=== PATIENT | female | born 1965 | race Caucasian/White ===

== ENCOUNTER 2021-11-18 15:16 | Inpatient (IN) ==
--- NOTE | 2021-11-18 15:26 | ED Triage Note ---
Date of Service November 18, 2021 History of Present Illness This patient was briefly evaluated while in triage. An abbreviated physical exam was performed. This patient is a 56-year-old Female with past medical history of breast cancer with mets to lymph nodes who presents to the ED for evaluation of fever up to 102.5, last taken at 1pm today. Took Tylenol at 1pm. Currently on Chemo weekly since July. Had new port placed about a month ago. Physical Exam VITALS: Noted to be febrile and mildly tachycardic. CONSTITUTIONAL: No acute distress. Well appearing. INTEGUMENTARY: Redness overlying right anterior chest wall near IV access port. Mildly tender to palpation. NEUROLOGIC: Alert and oriented X 4 with normal affect. Initial orders were not placed, as Dr. Chong called while patient in triage and states he will see this patient and place orders. Please see further documentation for the full ED course.
[2021-11-18] MEDS ORDERED: SODIUM CHLORIDE 0.9% 1000ML 2,000 ML IV ONE (15:30)
[2021-11-18] MEDS ORDERED: CEFEPIME 2,000 MG/20 ML VIAL IV STA (15:30)
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
[2021-11-18 16:41] LABS: Albumin Globulin Ratio 1.4 (0.9-2); Albumin Level 3.6 gm/dl (3.4-5.0); BUN Creatinine Ratio 14.4 (10-20); Bilirubin,Total 0.3 mg/dl (0.2-1.0); Calcium 8.1 mg/dl (8.5-10.1); Creatinine Clr Calc Pharmacy 51.2 ml/min; Est GFR (Non-African American) 60.4 ml/min; Globulin 2.5 gm/dl (2.5-4.0); Magnesium 1.6 mg/dl (1.7-2.4); Potassium 3.6 mmol/L (3.5-5.1); Total Protein 6.1 gm/dl (6.0-8.3)
[2021-11-18 16:44] LABS: Appearance Urine Clear (Clear); Bilirubin Urine Negative (Negative); Blood Urine Negative (Negative); Color Urine Yellow; Glucose Urine UA Negative (Negative); Ketones Urine Trace (Negative); Leukocyte Esterase Urine Negative (Negative); Nitrite Urine Negative (Negative); Protein Urine Negative (Negative); Specific Gravity Urine 1.027 (1.000-1.030); Urobilinogen Urine Negative (Negative); pH Urine 5.5 (4.5-7.5)
--- NOTE | 2021-11-18 16:45 | XRay Report ---
XR chest 1V portable CLINICAL HISTORY: SEPSIS TECHNIQUE: Single frontal radiograph of the chest was obtained. Comparison: None available at the time of this dictation. FINDINGS: A port catheter is seen. The cardiomediastinal silhouette is normal. The lungs are clear. No evidence of pleural effusion or pneumothorax. IMPRESSION: No acute chest disease. ACT 112: Negative or not required by law. Electronically signed by: Terrance Golden M.D. 11/18/2021 4:44 PM
[2021-11-18 16:47] LABS: Hematocrit (blood only) 29.9 % (34.1-44.9); Hemoglobin 9.8 g/dl (12.0-16.0); Mean Corpuscular Hemoglobin 33.7 pg (25.0-34.0); Mean Corpuscular Hgb Conc 32.8 g/dL (32.0-36.0); Mean Corpuscular Volume 102.7 fL (80.0-100.0); Nucleated RBC # (auto) 0.06 K/uL (0-0); Nucleated RBC % (auto) 0.7 %; Platelet Count 150 K/uL (130-400); RDW Coefficient of Variation 15.7 % (11.5-14.5); Red Blood Count 2.91 M/uL (3.93-5.22); White Blood Count 8.84 K/ul (4.8-10.8)
[2021-11-18 16:53] LABS: INR 1.1 (0.9-1.1); Partial Thromboplastin Ratio 1.1; Partial Thromboplastin Time 30.2 Seconds (21.0-31.0); Prothrombin Time 11.9 Seconds (9.0-12.0)
[2021-11-18 17:24] LABS: Influenza A virus by PCR Negative (Neg); Influenza B virus by PCR Negative (Neg); RSV by PCR Negative (Neg); SARS CoV2 RNA(COVID-19) InHosp NEGATIVE (Negative)
[2021-11-18 17:27] LABS: ALC (manual) 0.35 K/uL (1.2-3.4); ANC (manual) 7.16 K/uL (1.4-6.5); Basophilic Stippling 1+; Eosinophils # (manual) 0.09 K/uL (0-0.50); Eosinophils % (manual) 1 %; Lymphocytes # (manual) 0.35 K/uL (1.2-3.4); Lymphocytes % (manual) 4 %; Metamyelocytes # (manual) 0.27 K/uL (0-0); Metamyelocytes % (manual) 3 %; Monocytes # (manual) 0.71 K/uL (0.24-0.82); Monocytes % (manual) 8 %; Myelocytes # (manual) 0.09 K/uL (0-0); Myelocytes % (manual) 1 %; Neutrophils # (manual) 7.16 K/uL (1.4-6.5); Neutrophils % (manual) 81 %; Polychromasia 1+; Promyelocytes # (manual) 0.18 K/uL (0-0); Promyelocytes % (manual) 2 %; Tear Drop Cells 1+
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
[2021-11-18] MEDS ORDERED: ONDANSETRON INJ 2 MG/ML 2 ML VIAL IV STA (19:02)
[2021-11-18] MEDS ORDERED: Patient's ALLERGY Info needs ENTERED SCH (19:15)
[2021-11-18 21:17] LABS: Lyme Ab IgG w/WB Rflx Negative (Negative); Lyme Ab IgM w/WB Rflx Negative (Negative)
[2021-11-18] MEDS ORDERED: CETIRIZINE HCL 10 MG TABLET PO PRN (21:45)
[2021-11-18] MEDS ORDERED: VANCOMYCIN CONSULT ACTIVE PRN (21:45)
[2021-11-18] MEDS ORDERED: ONDANSETRON 4 MG OD TAB PO PRN (21:45)
[2021-11-18] MEDS ORDERED: ONDANSETRON INJ 2 MG/ML 2 ML VIAL IV PRN (21:45)
[2021-11-18] MEDS ORDERED: VANCOMYCIN HCL 1,500 MG in SODIUM CHLORIDE 0.9% 500 ML IV ONE (21:45)
[2021-11-18] MEDS ORDERED: PIPERACILLIN/TAZOBACTAM 4.5 GM in DEXTROSE 5% 100 ML IV ONE (22:30)
[2021-11-18] MEDS: HYDROXYCHLOROQUINE SULFATE 200 MG TAB PO SCH (23:11)
[2021-11-18] MEDS: PREGABALIN 75 MG CAP PO SCH (23:11)
[2021-11-18] MEDS: busPIRone 5 MG TAB PO SCH (23:11)
[2021-11-18] MEDS: TRIAMCINOLONE ACET 0.1% CR 15 GM TUBE TOP SCH (23:12)
[2021-11-18] MEDS: PANTOprazole 40 MG TAB PO SCH (23:12)
[2021-11-18] MEDS ORDERED: TEMAZEPAM 7.5 MG CAPSULE PO PRN (23:37)
[2021-11-18] MEDS: DOXYCYCLINE HYCLATE 100 MG in DEXTROSE 5% 100 ML IV SCH (23:55)
[2021-11-19] MEDS ORDERED: HEPARIN 100 UNIT/ML 5ML FLUSH ONE (00:24)
[2021-11-19] MEDS: ACETAMINOPHEN 325 MG TAB PO PRN ×3 (02:05→15:30)
[2021-11-19] MEDS: SODIUM CHLORIDE 0.9% 1000ML 1,000 ML IV SCH ×2 (02:10→12:50)
[2021-11-19] MEDS: PIPERACILLIN/TAZOBACTAM 4.5 GM in DEXTROSE 5% 100 ML IV SCH ×3 (04:00→19:33)
[2021-11-19] MEDS: ORDER AWAITING ACTION: Cyclosporine [Restasis] 0.05 % Dropperette SCH ×3 (04:32→13:50)
[2021-11-19] MEDS: [UNRECOGNIZED DRUG - REMARK] SCH ×2 (04:32→07:45)
[2021-11-19] MEDS: LEVOTHYROXINE SODIUM 88 MCG TABLET PO SCH (05:51)
[2021-11-19 06:14] LABS: Hematocrit (blood only) 27.4 % (34.1-44.9); Hemoglobin 8.8 g/dl (12.0-16.0); Mean Corpuscular Hgb Conc 32.1 g/dL (32.0-36.0); Mean Corpuscular Volume 102.6 fL (80.0-100.0); Mean Platelet Volume 11.4 fL (9.4-12.3); Nucleated RBC # (auto) 0.02 K/uL (0-0); Nucleated RBC % (auto) 0.3 %; Platelet Count 133 K/uL (130-400); RDW Coefficient of Variation 15.9 % (11.5-14.5); RDW Standard Deviation 59.7 fL (36.4-46.3); Red Blood Count 2.67 M/uL (3.93-5.22); White Blood Count 7.21 K/ul (4.8-10.8)
[2021-11-19 06:48] LABS: Albumin Globulin Ratio 1.4 (0.9-2); Albumin Level 3.1 gm/dl (3.4-5.0); BUN Creatinine Ratio 11.2 (10-20); Bilirubin,Total 0.2 mg/dl (0.2-1.0); Calcium 7.5 mg/dl (8.5-10.1); Creatinine Clr Calc Pharmacy 59.6 ml/min; Est GFR (African American) 84.6 ml/min; Globulin 2.2 gm/dl (2.5-4.0); Magnesium 1.6 mg/dl (1.7-2.4); Potassium 3.4 mmol/L (3.5-5.1); Total Protein 5.3 gm/dl (6.0-8.3)
[2021-11-19] MEDS ORDERED: FLUTICASONE PROPIONATE NA SPR 16 GM BTL PRN (08:22)
[2021-11-19] MEDS: LORATADINE 10 MG TAB PO SCH (08:31)
[2021-11-19] MEDS: ENOXAPARIN INJ 40 MG/0.4 ML SYR SQ SCH (08:31)
[2021-11-19] MEDS: FUROSEMIDE 20 MG TAB PO SCH (08:31)
[2021-11-19] MEDS: CALCIUM 600MG + VIT D 400 IU TAB PO SCH (08:32)
[2021-11-19] MEDS: CHOLECALCIFEROL 5,000 UNITS 125 MCG TAB PO SCH (08:32)
[2021-11-19] MEDS: PANTOprazole 40 MG TAB PO SCH ×2 (08:32→20:39)
[2021-11-19] MEDS: busPIRone 5 MG TAB PO SCH ×3 (08:32→20:39)
[2021-11-19] MEDS: PREGABALIN 75 MG CAP PO SCH ×2 (08:40→20:44)
[2021-11-19] MEDS: TRIAMCINOLONE ACET 0.1% CR 15 GM TUBE TOP SCH ×2 (08:46→21:00)
[2021-11-19] MEDS: guaiFENesin 600 MG TABCR PO SCH ×2 (09:54→20:38)
[2021-11-19] MEDS: SACCHAROMYCES BOULARDII 250 MG CAP PO SCH (09:54)
[2021-11-19] MEDS: HYDROXYCHLOROQUINE SULFATE 200 MG TAB PO SCH ×2 (10:09→20:39)
--- NOTE | 2021-11-19 10:17 | Pharmacy Report ---
Pharmacy PK ABX Note - Date of Service November 19, 2021 - Assessment and Plan Assessment 56 year old F receiving IV vancomycin, zosyn and doxycycline for empiric treatment of finger paronychia. Pt is febrile, and immunocompromised on chemotherapy. Outpatient culture growing Pasteurella multocida from 11/13. Failed outpatient Bactrim. Blood cultures pending. Renal function stable. Day #1 of antimicrobial therapy. Plan Vancomycin * Maintenance dose: 1500mg IV q24h * Regimen is predicted to achieve target AUC/SOULEYMANE of 400-600 mg/L.hr * Level will be ordered if vancomycin continued, or sooner if clinically indicated Pharmacy will continue to follow and will adjust dose/frequency as necessary. Thank you. Pharmacy has transitioned to AUC monitoring for vancomycin. AUC/SOULEYMANE is the preferred PK/PD target and is associated with decreased risk of nephrotoxicity compared to traditional trough targets.
[2021-11-19] MEDS: DOXYCYCLINE HYCLATE 100 MG in DEXTROSE 5% 100 ML IV SCH ×2 (10:23→23:07)
--- NOTE | 2021-11-19 11:51 | Hospitalist Progress Note ---
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 She has been on bactrim which would provide adequate coverage Fever -Unclear etiology -Will maintain vancomycin, zosyn pending blood culture. Maintain doxycycline pending babesia, anaplasmosis PCR -CXR negative, UA negative. Absence of meningismus. Lyme screen negative, smear neg for anaplasma and babesia--PCR pending. Covid screen negative. Influenza negative Breast CA -currently on chemotherapy, sees Dr Aguilar Lupus -continue hydroxychloroquine. Denies recent flare DVT ppx SQ lovenox Disposition- return home, pending clinical course Admission and Anticipated Discharge Date Admission Date: November 18, 2021 Subjective low grade temp to 99.8 this morning Headache subsided to 2/10 Denies cough, diarrhea, urinary symptoms, rash or skin lesion Reports sinus congestion is improved Review of Systems Review of Systems: as above Physical Exam Physical Exam: Appears well, no acute distress, non toxic ENMT: No pain with EOMI, no sinus tenderness, neck is supple and ROM is intact Respiratory: Breathing comfortably on room air, no wheezing/rhonchi/rales Cardiovascular: Regular rate and rhythm, no murmurs/rubs/gallops Gastrointestinal (Abdomen): soft, non tender, non distended Musculoskeletal: left finger is not swollen/red, no lower extremity edema Skin: Site of right chest wall port with incision--incision appears well approximated and healed, 2 small pustular lesion on face (present for past several months) but with no surrounding erythema, no other open wound or ulcers noted Neurologic: awake, alert, spontaneously moving extremities Results & Data Results & Data ([facility]) Vital Signs (Past 12 Hours) Vital Signs Temp Pulse Pulse Resp BP BP Pulse Ox 11/19/21 11:18 37.4 C 88 16 103/60 97 11/19/21 10:12 36.8 C 11/19/21 08:00 94 H 11/19/21 07:17 37.7 C H 93 H 17 98/55 L 95 11/19/21 04:27 97 H 11/19/21 04:00 37.6 C H 97 H 20 95/60 L 92 11/19/21 00:00 18 11/19/21 01:33 103 H 18 109/59 L 96 11/19/21 00:02 109 H 18 103/57 L 93 O2 Del Method 11/19/21 11:18 Room Air 11/19/21 10:12 11/19/21 08:00 11/19/21 07:17 Room Air 11/19/21 04:27 11/19/21 04:00 Room Air 11/19/21 00:00 11/19/21 01:33 Room Air 11/19/21 00:02 Room Air Laboratory Results Short CBC 11/18/21 11/19/21 Range/Units 15:59 05:57 WBC 8.84 7.21 (4.8-10.8) K/ul Hgb 9.8 L 8.8 L (12.0-16.0) g/dl Hct 29.9 L 27.4 L (34.1-44.9) % Plt Count 150 133 (130-400) K/uL BMP 11/18/21 11/19/21 15:59 05:57 Sodium 137 141 Potassium 3.6 3.4 L Chloride 103 109 H Carbon Dioxide 25 27 BUN 15 10 Creatinine 1.04 0.89 Glucose 104 H 113 H Calcium 8.1 L 7.5 L Liver Function 11/18/21 11/19/21 Range/Units 15:59 05:57 Total Bilirubin 0.3 0.2 (0.2-1.0) mg/dl AST 26 27 (13-39) U/L ALT 18 19 (7-52) U/L Alkaline Phosphatase 77 62 (34-104) U/L Albumin 3.6 3.1 L (3.4-5.0) gm/dl Urine 11/18/21 Range/Units 15:44 Urine Color Yellow Urine Appearance Clear (Clear) Urine pH 5.5 (4.5-7.5) Ur Specific [place] 1.027 (1.000-1.030) Urine Protein Negative (Negative) Urine Glucose (UA) Negative (Negative) Medications Administered Current Inpatient Medications Acetaminophen (Acetaminophen 325 Mg Tab) 650 mg PO Q4H PRN PRN Reason: Moderate Pain Stop: 12/18/21 21:44 Last Admin: 11/19/21 07:46 Dose: 650 mg Buspirone HCl (Buspirone 5 Mg Tab) 10 mg PO TID [facility] Stop: 12/18/21 21:44 Last Admin: 11/19/21 08:32 Dose: 10 mg Enoxaparin Sodium (Enoxaparin Inj 40 Mg/0.4 Ml Syr) 40 mg SQ QAM AMAN Stop: 12/19/21 08:59 Last Admin: 11/19/21 08:31 Dose: 40 mg Fluticasone Propionate (Fluticasone Propionate Na Spr 16 Gm Btl) 1 sprays NA BID PRN PRN Reason: Allergic Symptoms Stop: 12/19/21 08:59 Furosemide (Furosemide 20 Mg Tab) 20 mg PO DAILY AMAN Stop: 12/19/21 08:59 Last Admin: 11/19/21 08:31 Dose: 20 mg Guaifenesin (Guaifenesin 600 Mg Tabcr) 600 mg PO Q12 AMAN Stop: 12/19/21 08:59 Last Admin: 11/19/21 09:54 Dose: 600 mg Heparin Sodium (Beef Lung) (Heparin 10 Unit/Ml 5 Ml Flush) 5 ml FLUSH BID AMAN Stop: 12/18/21 21:44 Last Admin: 11/19/21 08:41 Dose: 5 ml Hydroxychloroquine Sulfate (Hydroxychloroquine Sulfate 200 Mg Tab) 200 mg PO Q48H AMAN Stop: 12/18/21 21:44 Last Admin: 11/18/21 23:11 Dose: 200 mg Hydroxychloroquine Sulfate (Hydroxychloroquine Sulfate 200 Mg Tab) 200 mg PO Q2D@0900 [facility] Stop: 12/19/21 09:39 Last Admin: 11/19/21 10:09 Dose: 200 mg Hydroxychloroquine Sulfate (Hydroxychloroquine Sulfate 200 Mg Tab) 200 mg PO Q2D@2100 [facility] Stop: 12/19/21 20:59 Sodium Chloride (Nss 1000ml) 1,000 mls @ 125 mls/hr IV .Q8H AMAN Stop: 11/19/21 13:44 Last Admin: 11/19/21 02:10 Dose: 125 mls/hr Doxycycline Hyclate 100 mg/ (Dextrose) 110 mls @ 50 mls/hr IV Q12H AMAN Stop: 11/20/21 21:59 Last Admin: 11/19/21 10:23 Dose: 50 mls/hr Piperacillin Sod/Tazobactam (Sod 4.5 gm/ Dextrose) 120 mls @ 30 mls/hr IV Q8H [facility]; Protocol Stop: 11/21/21 03:59 Last Infusion: 11/19/21 08:49 Dose: Infused Vancomycin HCl 1,500 mg/ (Sodium Chloride) 530 mls @ 200 mls/hr IV Q24H [facility] Stop: 11/21/21 11:59 Levothyroxine Sodium (Levothyroxine Sodium 88 Mcg Tablet) [facility] Stop: 12/19/21 06:29 Last Admin: 11/19/21 05:51 Dose: 88 mcg Loratadine (Loratadine 10 Mg Tab) 10 mg PO DAILY [facility] Stop: 12/19/21 08:59 Last Admin: 11/19/21 08:31 Dose: 10 mg Miscellaneous (Order Awaiting Action: Clindamycin Phosphate 1 % Gel) 1 each N/A QS [facility] Stop: 12/19/21 00:00 Last Admin: 11/19/21 07:44 Dose: Not Given Miscellaneous (Order Awaiting Action: Cyclosporine [Restasis] 0.05 % Dropperette) 1 each N/A [facility] Stop: 12/19/21 00:00 Last Admin: 11/19/21 07:44 Dose: Not Given Miscellaneous (Order Awaiting Action: Vortioxetine [Trintellix] 20 Mg Tablet) 1 each N/A [facility] Stop: 12/19/21 00:00 Last Admin: 11/19/21 07:45 Dose: Not Given Miscellaneous Information (Vancomycin Consult Active) 1 each N/A UD PRN PRN Reason: Consult Stop: 12/18/21 21:44 Multivitamins/Minerals (Calcium 600mg + Vit D 400 Iu Tab) 1 tab PO DAILY [facility] Stop: 12/19/21 08:59 Last Admin: 11/19/21 08:32 Dose: 1 tab Ondansetron HCl (Ondansetron Inj 2 Mg/Ml 2 Ml Vial) 4 mg IV Q4H PRN PRN Reason: Nausea And Vomiting Stop: 12/18/21 21:44 Ondansetron HCl (Ondansetron 4 Mg Od Tab) 8 mg PO Q8H PRN PRN Reason: Nausea Pantoprazole Sodium (Pantoprazole 40 Mg Tab) 40 mg PO BID AMAN Stop: 12/18/21 21:44 Last Admin: 11/19/21 08:32 Dose: 40 mg Pregabalin (Pregabalin 75 Mg Cap) 225 mg PO AMHS AMAN Stop: 12/18/21 21:44 Last Admin: 11/19/21 08:40 Dose: 225 mg Saccharomyces Boulardii (Saccharomyces Boulardii 250 Mg Cap) 250 mg PO DAILY AMAN Stop: 12/19/21 08:59 Last Admin: 11/19/21 09:54 Dose: 250 mg Temazepam (Temazepam 7.5 Mg Capsule) 7.5 mg PO HS PRN PRN Reason: Insomnia Stop: 12/18/21 23:36 Triamcinolone Acetonide (Triamcinolone Acet 0.1% Cr 15 Gm Tube) 1 appln TOP BID AMAN Stop: 12/18/21 21:44 Last Admin: 11/19/21 08:46 Dose: Not Given Vitamin D (Cholecalciferol 5,000 Units 125 Mcg Tab) 5,000 units PO DAILY AMAN Stop: 12/19/21 08:59 Last Admin: 11/19/21 08:32 Dose: 5,000 units
[2021-11-19] MEDS: VANCOMYCIN HCL 1,500 MG in SODIUM CHLORIDE 0.9% 500 ML IV SCH (12:46)
[2021-11-19] MEDS: VORTIOXETINE HYDROBROMIDE 20MG PO SCH (13:10)
--- NOTE | 2021-11-19 17:54 | Electrocardiogram Report ---
Test Reason : Blood Pressure : / mmHG Vent. Rate : 099 BPM Atrial Rate : 099 BPM P-R Int : 128 ms QRS Dur : 068 ms QT Int : 354 ms P-R-T Axes : 062 058 060 degrees QTc Int : 454 ms Normal sinus rhythm Normal ECG No previous ECGs available Confirmed by Connor Zimmer ([id number]) on 11/19/2021 5:54:01 PM Referred By: Confirmed By:Nicholas Zimmer
[2021-11-19] MEDS ORDERED: VANCOMYCIN HCL 1,000 MG in SODIUM CHLORIDE 0.9% 250 ML IV SCH (18:00)
[2021-11-19] MEDS ORDERED: HYDROXYCHLOROQUINE SULFATE 200 MG TAB PO SCH (21:00)
[2021-11-20] MEDS: PIPERACILLIN/TAZOBACTAM 4.5 GM in DEXTROSE 5% 100 ML IV SCH ×2 (03:09→12:09)
[2021-11-20] MEDS: ACETAMINOPHEN 325 MG TAB PO PRN ×2 (03:31→17:30)
[2021-11-20] MEDS: DICLOFENAC SODIUM 75 MG TABCR PO SCH ×2 (03:51→20:26)
[2021-11-20] MEDS: LEVOTHYROXINE SODIUM 88 MCG TABLET PO SCH (05:48)
[2021-11-20 06:45] LABS: Hematocrit (blood only) 29.6 % (34.1-44.9); Hemoglobin 9.6 g/dl (12.0-16.0); Mean Corpuscular Hemoglobin 33.2 pg (25.0-34.0); Mean Corpuscular Hgb Conc 32.4 g/dL (32.0-36.0); Mean Corpuscular Volume 102.4 fL (80.0-100.0); Mean Platelet Volume 11.5 fL (9.4-12.3); Nucleated RBC # (auto) 0.03 K/uL (0-0); Nucleated RBC % (auto) 0.5 %; Platelet Count 180 K/uL (130-400); RDW Coefficient of Variation 15.9 % (11.5-14.5); RDW Standard Deviation 59.6 fL (36.4-46.3); Red Blood Count 2.89 M/uL (3.93-5.22); White Blood Count 6.21 K/ul (4.8-10.8)
[2021-11-20 07:30] LABS: Albumin Globulin Ratio 1.3 (0.9-2); Albumin Level 3.4 gm/dl (3.4-5.0); BUN Creatinine Ratio 14.3 (10-20); Bilirubin,Total 0.3 mg/dl (0.2-1.0); Calcium 8.1 mg/dl (8.5-10.1); Creatinine Clr Calc Pharmacy 54.6 ml/min; Est GFR (African American) 75.3 ml/min; Est GFR (Non-African American) 64.9 ml/min; Globulin 2.6 gm/dl (2.5-4.0); Magnesium 1.7 mg/dl (1.7-2.4); Potassium 3.4 mmol/L (3.5-5.1)
[2021-11-20] MEDS: ORDER AWAITING ACTION: Cyclosporine [Restasis] 0.05 % Dropperette SCH ×4 (07:31→23:49)
[2021-11-20] MEDS ORDERED: POTASSIUM CHLORIDE CRTAB 20 MEQ TABCR PO STA (07:37)
[2021-11-20] MEDS: FUROSEMIDE 20 MG TAB PO SCH (08:47)
[2021-11-20] MEDS: LORATADINE 10 MG TAB PO SCH (08:47)
[2021-11-20] MEDS: SACCHAROMYCES BOULARDII 250 MG CAP PO SCH (08:47)
[2021-11-20] MEDS: busPIRone 5 MG TAB PO SCH ×3 (08:47→20:25)
[2021-11-20] MEDS: guaiFENesin 600 MG TABCR PO SCH ×3 (08:47→20:26)
[2021-11-20] MEDS: PANTOprazole 40 MG TAB PO SCH ×2 (08:48→20:25)
[2021-11-20] MEDS: VORTIOXETINE HYDROBROMIDE 20MG PO SCH (08:48)
[2021-11-20] MEDS: CALCIUM 600MG + VIT D 400 IU TAB PO SCH (08:48)
[2021-11-20] MEDS: CHOLECALCIFEROL 5,000 UNITS 125 MCG TAB PO SCH (08:48)
[2021-11-20] MEDS: TRIAMCINOLONE ACET 0.1% CR 15 GM TUBE TOP SCH ×2 (08:49→20:27)
[2021-11-20] MEDS: ENOXAPARIN INJ 40 MG/0.4 ML SYR SQ SCH (08:49)
[2021-11-20] MEDS: PREGABALIN 75 MG CAP PO SCH ×2 (08:54→20:25)
[2021-11-20] MEDS: DOXYCYCLINE HYCLATE 100 MG in DEXTROSE 5% 100 ML IV SCH (10:04)
[2021-11-20] MEDS: VANCOMYCIN HCL 1,500 MG in SODIUM CHLORIDE 0.9% 500 ML IV SCH (12:09)
--- NOTE | 2021-11-20 15:52 | Hospitalist Progress Note ---
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 She has been on bactrim which would provide adequate coverage Fever of unknown origin -work up so far has been negative. Pending are anaplasma, babesia, ehrlichia PCR -I discussed case with Oncology and ID (Dr Verde and Kit) -Per ID, will check CT chest/abdomen/pelvis with IV and oral contrast, check TTE, check thick/thin smear (to evaluate for parasite). Observe off antibiotics -Anaplasma and babesia smears are negative. Will send for malaria smear -will discontinue antibiotics and monitor Breast CA -currently on chemotherapy, sees Dr Aguilar Lupus -continue hydroxychloroquine. Denies recent flare. Check ESR, CRP DVT ppx SQ lovenox Disposition- return home, pending clinical course Admission and Anticipated Discharge Date Admission Date: November 18, 2021 Subjective Still with fevers, T max 38.9 Patient feels well. Reports metallic taste in her mouth but otherwise no new complaints Physical Exam Physical Exam: Appears well, pleasant and cooperative Respiratory: breathing comfortably on room air, no wheezing/rhonchi/rales Cardiovascular: regular rate and rhythm, no murmurs/rubs Gastrointestinal (Abdomen): soft, non tender, non distended Musculoskeletal: No edema, no cyanosis or clubbing Neurologic: awake, alert, spontaneously moving extremities Psychiatric: affect normal, speech linear, non pressure Results & Data Results & Data ([facility]) Vital Signs (Past 12 Hours) Vital Signs Temp Pulse Pulse Resp BP Pulse Ox O2 Del Method 11/20/21 15:24 37.1 C 93 H 17 102/56 L 96 Room Air 11/20/21 11:15 36.7 C 83 17 114/69 96 Room Air 11/20/21 07:36 36.8 C 79 15 104/65 96 Room Air 11/20/21 07:12 75 11/20/21 05:50 37.3 C Laboratory Results Short CBC 11/20/21 Range/Units 06:19 WBC 6.21 (4.8-10.8) K/ul Hgb 9.6 L (12.0-16.0) g/dl Hct 29.6 L (34.1-44.9) % Plt Count 180 (130-400) K/uL BMP 11/20/21 06:19 Sodium 140 Potassium 3.4 L Chloride 106 Carbon Dioxide 28 BUN 14 Creatinine 0.98 Glucose 106 H Calcium 8.1 L Liver Function 11/20/21 Range/Units 06:19 Total Bilirubin 0.3 (0.2-1.0) mg/dl AST 28 (13-39) U/L ALT 21 (7-52) U/L Alkaline Phosphatase 67 (34-104) U/L Albumin 3.4 (3.4-5.0) gm/dl Medications Administered Current Inpatient Medications Acetaminophen (Acetaminophen 325 Mg Tab) 650 mg PO Q4H PRN PRN Reason: Moderate Pain Stop: 12/18/21 21:44 Last Admin: 11/20/21 03:31 Dose: 650 mg Buspirone HCl (Buspirone 5 Mg Tab) 10 mg PO TID AMAN Stop: 12/18/21 21:44 Last Admin: 11/20/21 13:43 Dose: 10 mg Diclofenac Sodium (Diclofenac Sodium 75 Mg Tabcr) 75 mg PO BID AMAN Stop: 12/20/21 08:59 Last Admin: 11/20/21 03:51 Dose: 75 mg Enoxaparin Sodium (Enoxaparin Inj 40 Mg/0.4 Ml Syr) 40 mg SQ QAM [facility] Stop: 12/19/21 08:59 Last Admin: 11/20/21 08:49 Dose: 40 mg Fluticasone Propionate (Fluticasone Propionate Na Spr 16 Gm Btl) 1 sprays NA BID PRN PRN Reason: Allergic Symptoms Stop: 12/19/21 08:59 Furosemide (Furosemide 20 Mg Tab) 20 mg PO DAILY [facility] Stop: 12/19/21 08:59 Last Admin: 11/20/21 08:47 Dose: 20 mg Guaifenesin (Guaifenesin 600 Mg Tabcr) 600 mg PO Q12 [facility] Stop: 12/19/21 08:59 Last Admin: 11/20/21 08:59 Dose: Not Given Heparin Sodium (Beef Lung) (Heparin 10 Unit/Ml 5 Ml Flush) 5 ml FLUSH BID [facility] Stop: 12/18/21 21:44 Last Admin: 11/20/21 08:54 Dose: 5 ml Hydroxychloroquine Sulfate (Hydroxychloroquine Sulfate 200 Mg Tab) 200 mg PO Q48H [facility] Stop: 12/18/21 21:44 Last Admin: 11/18/21 23:11 Dose: 200 mg Hydroxychloroquine Sulfate (Hydroxychloroquine Sulfate 200 Mg Tab) 200 mg PO Q2D@0900 [facility] Stop: 12/19/21 09:39 Last Admin: 11/19/21 10:09 Dose: 200 mg Hydroxychloroquine Sulfate (Hydroxychloroquine Sulfate 200 Mg Tab) 200 mg PO Q2D@2100 [facility] Stop: 12/19/21 20:59 Last Admin: 11/19/21 20:39 Dose: 200 mg Levothyroxine Sodium (Levothyroxine Sodium 88 Mcg Tablet) 88 mcg PO DAILYBB [facility] Stop: 12/19/21 06:29 Last Admin: 11/20/21 05:48 Dose: 88 mcg Loratadine (Loratadine 10 Mg Tab) 10 mg PO DAILY [facility] Stop: 12/19/21 08:59 Last Admin: 11/20/21 08:47 Dose: 10 mg Miscellaneous (Order Awaiting Action: Clindamycin Phosphate 1 % Gel) 1 each N/A QS [facility] Stop: 12/19/21 00:00 Last Admin: 11/20/21 14:59 Dose: Not Given Miscellaneous (Order Awaiting Action: Cyclosporine [Restasis] 0.05 % Dropperette) 1 each N/A QS [facility] Stop: 12/19/21 00:00 Last Admin: 11/20/21 14:59 Dose: Not Given Multivitamins/Minerals (Calcium 600mg + Vit D 400 Iu Tab) 1 tab PO DAILY [facility] Stop: 12/19/21 08:59 Last Admin: 11/20/21 08:48 Dose: 1 tab Ondansetron HCl (Ondansetron Inj 2 Mg/Ml 2 Ml Vial) 4 mg IV Q4H PRN PRN Reason: Nausea And Vomiting Stop: 12/18/21 21:44 Ondansetron HCl (Ondansetron 4 Mg Od Tab) 8 mg PO Q8H PRN PRN Reason: Nausea Pantoprazole Sodium (Pantoprazole 40 Mg Tab) 40 mg PO BID [facility] Stop: 12/18/21 21:44 Last Admin: 11/20/21 08:48 Dose: 40 mg Pregabalin (Pregabalin 75 Mg Cap) 225 mg PO AMHS [facility] Stop: 12/18/21 21:44 Last Admin: 11/20/21 08:54 Dose: 225 mg Saccharomyces Boulardii (Saccharomyces Boulardii 250 Mg Cap) 250 mg PO DAILY [facility] Stop: 12/19/21 08:59 Last Admin: 11/20/21 08:47 Dose: 250 mg Temazepam (Temazepam 7.5 Mg Capsule) 7.5 mg PO HS PRN PRN Reason: Insomnia Stop: 12/18/21 23:36 Triamcinolone Acetonide (Triamcinolone Acet 0.1% Cr 15 Gm Tube) 1 appln TOP BID [facility] Stop: 12/18/21 21:44 Last Admin: 11/20/21 08:49 Dose: Not Given Vitamin D (Cholecalciferol 5,000 Units 125 Mcg Tab) 5,000 units PO DAILY [facility] Stop: 12/19/21 08:59 Last Admin: 11/20/21 08:48 Dose: 5,000 units Vortioxetine (Vortioxetine Hydrobromide 20mg) 1 each PO DAILY [facility] Stop: 12/19/21 12:59 Last Admin: 11/20/21 08:48 Dose: 1 each
[2021-11-20] MEDS ORDERED: OPTIRAY 320 100ml IV ONE (18:39)
--- NOTE | 2021-11-20 19:03 | CT Scan Report ---
CHEST CT WITH CONTRAST, ABDOMEN AND PELVIS CT WITH INTRAVENOUS AND ORAL CONTRAST CT DOSE: 538.99 mGy.cm HISTORY: fever of unknown origin TECHNIQUE: Multiaxial CT images of the chest, abdomen, and pelvis were performed following the intrav enous administration of contrast. Oral contrast was also administered for the abdomen and pelvis CT. A dose lowering technique was utilized adhering to the principles of ALARA. COMPARISON: None. FINDINGS: Chest CT: Lower cervical spinal fusion hardware is noted. No fractures within the visualized osseous structures of the chest. No suspicious lytic or blastic osseous lesions. A right jugular Port-A-Cath terminates in the distal SVC. Normal esophagus. The thyroid gland enhances normally. There are few sharda rderline enlarged left axillary lymph nodes measuring up to 12 mm in short axis diameter. One of thes e axillary lymph nodes appears to contain a biopsy clip. No right axillary lymphadenopathy. No medias tinal or hilar lymphadenopathy. The heart is normal in size. No pleural or pericardial effusions. The central pulmonary arteries are patent. No pneumothorax. The central airways are clear. Mild dependen t changes seen at the lung bases. Otherwise, no focal lung consolidations to suggest pneumonia. No bejarano spicious pulmonary nodules. Surgical clips noted within the left breast. Abdomen/pelvis CT: No pneumoperitoneum. No pneumatosis. No suspicious lytic or blastic osseous lesion s. Moderate to severe disc space narrowing at L3-L4. There is a 2.5 cm diverticulum at the third port ion of the duodenum. The liver, gallbladder, pancreas, spleen, adrenal glands, and kidneys are unrema rkable. No hydronephrosis. The main portal vein is patent. Normal caliber abdominal aorta with no sari dence for dissection. No retroperitoneal or pelvic lymphadenopathy. The bladder is decompressed. This may account for the apparent bladder wall thickening. The uterus appears surgically absent. No pelvi c free fluid. No bowel wall thickening or obstruction. Fluid-filled nondilated large and small bowel. Normal appendix. IMPRESSION: 1. No focal lung consolidations to suggest pneumonia. 2. There are a few borderline-enlarged left axillary lymph nodes one of which appears to contain a bi opsy clip. Correlate with prior biopsy results for further evaluation. 3. No bowel wall thickening or obstruction. 4. Fluid-filled nondilated loops of large and small bowel. This could be seen in the setting of a gas troenteritis/diarrheal illness. 5. Bladder wall thickening is likely due to underdistention. Recommend correlation with urinalysis to exclude the possibility of a cystitis. ACT 112: Negative or not required by law. Electronically signed by: Chava Albarran M.D. 11/20/2021 7:01 PM
[2021-11-20] MEDS ORDERED: KETOROLAC 30 MG/ML VIAL IV ONE (19:42)
[2021-11-20] MEDS ORDERED: KETOROLAC TROMETHAMINE 15 MG/ML VIAL IV ONE (20:12)
[2021-11-20] MEDS: HYDROXYCHLOROQUINE SULFATE 200 MG TAB PO SCH (20:26)
[2021-11-20] MEDS ORDERED: ACETAMINOPHEN 1000 MG/100 ML IV IV PRN (21:35)
[2021-11-20] MEDS: ACETAMINOPHEN 1,000 MG/100 ML VIAL IV PRN (21:44)
[2021-11-21] MEDS: LEVOTHYROXINE SODIUM 88 MCG TABLET PO SCH (05:11)
[2021-11-21] MEDS: ACETAMINOPHEN 1,000 MG/100 ML VIAL IV PRN (05:12)
[2021-11-21 07:07] LABS: Hematocrit (blood only) 30.6 % (34.1-44.9); Hemoglobin 10.1 g/dl (12.0-16.0); Mean Platelet Volume 10.9 fL (9.4-12.3); Nucleated RBC # (auto) 0.04 K/uL (0-0); Nucleated RBC % (auto) 0.3 %; Platelet Count 261 K/uL (130-400); RDW Coefficient of Variation 15.9 % (11.5-14.5); RDW Standard Deviation 61.1 fL (36.4-46.3); Red Blood Count 2.97 M/uL (3.93-5.22); White Blood Count 11.67 K/ul (4.8-10.8)
[2021-11-21 07:28] LABS: Albumin Globulin Ratio 1.4 (0.9-2); Albumin Level 3.6 gm/dl (3.4-5.0); BUN Creatinine Ratio 17.5 (10-20); Bilirubin,Total 0.3 mg/dl (0.2-1.0); C Reactive Protein 2.99 mg/dl (0-0.5); Calcium 8.3 mg/dl (8.5-10.1); Creatinine Clr Calc Pharmacy 66.7 ml/min; Est GFR (African American) 96.2 ml/min; Globulin 2.5 gm/dl (2.5-4.0); Magnesium 1.6 mg/dl (1.7-2.4); Potassium 3.8 mmol/L (3.5-5.1); Total Protein 6.1 gm/dl (6.0-8.3)
[2021-11-21] MEDS: PREGABALIN 75 MG CAP PO SCH ×2 (08:50→20:56)
[2021-11-21] MEDS: ORDER AWAITING ACTION: Cyclosporine [Restasis] 0.05 % Dropperette SCH ×3 (08:51→23:06)
[2021-11-21] MEDS: ENOXAPARIN INJ 40 MG/0.4 ML SYR SQ SCH (08:51)
[2021-11-21] MEDS: busPIRone 5 MG TAB PO SCH ×3 (08:51→20:55)
[2021-11-21] MEDS: FUROSEMIDE 20 MG TAB PO SCH (08:51)
[2021-11-21] MEDS: DICLOFENAC SODIUM 75 MG TABCR PO SCH ×2 (08:52→20:54)
[2021-11-21] MEDS: CALCIUM 600MG + VIT D 400 IU TAB PO SCH (08:52)
[2021-11-21] MEDS: CHOLECALCIFEROL 5,000 UNITS 125 MCG TAB PO SCH (08:52)
[2021-11-21] MEDS: LORATADINE 10 MG TAB PO SCH (08:53)
[2021-11-21] MEDS: guaiFENesin 600 MG TABCR PO SCH ×2 (08:53→20:50)
[2021-11-21] MEDS: TRIAMCINOLONE ACET 0.1% CR 15 GM TUBE TOP SCH ×2 (08:54→20:49)
[2021-11-21] MEDS: PANTOprazole 40 MG TAB PO SCH ×2 (08:54→20:54)
[2021-11-21] MEDS: HYDROXYCHLOROQUINE SULFATE 200 MG TAB PO SCH ×2 (08:54→20:55)
[2021-11-21] MEDS: SACCHAROMYCES BOULARDII 250 MG CAP PO SCH (08:54)
[2021-11-21] MEDS: VORTIOXETINE HYDROBROMIDE 20MG PO SCH (08:55)
[2021-11-21] MEDS ORDERED: VANCOMYCIN LEVEL ONE (11:30)
[2021-11-21 15:06] LABS: Babesia microti DNA Not Detected (Not Detected)
--- NOTE | 2021-11-21 17:05 | Hospitalist Progress Note ---
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 Pending are anaplasma, babesia, ehrlichia PCR -Vancomycin, Zosyn, doxycycline was empirically started on admission--> despite broad spectrum Abx she continued to spike fevers. I discussed case with Oncology and ID yesterday and it was recommended to monitor off antibiotics. -Antibiotics discontinued 11/20 and again she spiked fevers overnight -Repeat blood cultures obtained 11/21 while she has been off Abx -WBC mildly elevated now that she is off antibiotics -Will ask for formal ID consult to evaluate for occult infection -Rheumatology consulted-- C3, C4, anti DS DNA and anti histone levels were requested (these are send out studies) -CT A/P showed dilated loops of large and small bowel -CT chest --borderline enlarged left axillary lymph nodes one of which contains biopsy clip -TTE negative for vegetations -Diarrhea overnight--> will order stool PCR panel Breast CA -currently on chemotherapy, sees Dr Aguilar Lupus -continue hydroxychloroquine. DVT ppx SQ lovenox Disposition- return home, pending clinical course Admission and Anticipated Discharge Date Admission Date: November 18, 2021 Subjective Again, fever overnight. Tmax 39.4 Upon further questioning, patient reported loose stools last night and this morning Reports left knee and left ankle joint pain which is chronic for which she takes diclofenac Physical Exam Physical Exam: Appears well, no acute distress, non toxic Respiratory: Breathing comfortably on room air, no wheezing/rhonchi/rales Cardiovascular: regular rate and rhythm, no murmurs/rubs/gallops Gastrointestinal (Abdomen): soft, non tender, non distended Musculoskeletal: No knee or ankle swelling noted, no edema Skin: No rash, no redness, no ulcers noted on exposed skin Neurologic: awake, alert, neck supple, spontaneously moving extremities Results & Data Results & Data ([facility]) Vital Signs (Past 12 Hours) Vital Signs Temp Pulse Pulse Resp BP BP Pulse Ox 11/21/21 16:25 36.8 C 88 18 105/63 94 11/21/21 14:42 90 11/21/21 11:45 36.4 C L 93 H 16 96/69 L 97 11/21/21 07:14 98 H 11/21/21 07:11 37.3 C 90 18 102/60 94 O2 Del Method 11/21/21 16:25 Room Air 11/21/21 14:42 11/21/21 11:45 Room Air 11/21/21 07:14 11/21/21 07:11 Room Air Laboratory Results Short CBC 11/21/21 Range/Units 06:31 WBC 11.67 H (4.8-10.8) K/ul Hgb 10.1 L (12.0-16.0) g/dl Hct 30.6 L (34.1-44.9) % Plt Count 261 (130-400) K/uL BMP 11/21/21 06:31 Sodium 138 Potassium 3.8 Chloride 104 Carbon Dioxide 27 BUN 14 Creatinine 0.80 Glucose 103 H Calcium 8.3 L Liver Function 11/21/21 Range/Units 06:31 Total Bilirubin 0.3 (0.2-1.0) mg/dl AST 20 (13-39) U/L ALT 19 (7-52) U/L Alkaline Phosphatase 72 (34-104) U/L Albumin 3.6 (3.4-5.0) gm/dl Medications Administered Current Inpatient Medications Acetaminophen (Acetaminophen 325 Mg Tab) 650 mg PO Q4H PRN PRN Reason: Moderate Pain Stop: 12/18/21 21:44 Last Admin: 11/20/21 17:30 Dose: 650 mg Buspirone HCl (Buspirone 5 Mg Tab) 10 mg PO TID AMAN Stop: 12/18/21 21:44 Last Admin: 11/21/21 13:38 Dose: 10 mg Diclofenac Sodium (Diclofenac Sodium 75 Mg Tabcr) 75 mg PO BID [facility] Stop: 12/20/21 08:59 Last Admin: 11/21/21 08:52 Dose: 75 mg Enoxaparin Sodium (Enoxaparin Inj 40 Mg/0.4 Ml Syr) 40 mg SQ QAM [facility] Stop: 12/19/21 08:59 Last Admin: 11/21/21 08:51 Dose: 40 mg Fluticasone Propionate (Fluticasone Propionate Na Spr 16 Gm Btl) 1 sprays NA BID PRN PRN Reason: Allergic Symptoms Stop: 12/19/21 08:59 Furosemide (Furosemide 20 Mg Tab) 20 mg PO DAILY [facility] Stop: 12/19/21 08:59 Last Admin: 11/21/21 08:51 Dose: 20 mg Guaifenesin (Guaifenesin 600 Mg Tabcr) 600 mg PO Q12 [facility] Stop: 12/19/21 08:59 Last Admin: 11/21/21 08:53 Dose: 600 mg Heparin Sodium (Beef Lung) (Heparin 10 Unit/Ml 5 Ml Flush) 5 ml FLUSH BID [facility] Stop: 12/18/21 21:44 Last Admin: 11/21/21 09:04 Dose: 5 ml Hydroxychloroquine Sulfate (Hydroxychloroquine Sulfate 200 Mg Tab) 200 mg PO Q48H [facility] Stop: 12/18/21 21:44 Last Admin: 11/20/21 20:26 Dose: 200 mg Hydroxychloroquine Sulfate (Hydroxychloroquine Sulfate 200 Mg Tab) 200 mg PO Q2D@0900 [facility] Stop: 12/19/21 09:39 Last Admin: 11/21/21 08:54 Dose: 200 mg Hydroxychloroquine Sulfate (Hydroxychloroquine Sulfate 200 Mg Tab) 200 mg PO Q2D@2100 [facility] Stop: 12/19/21 20:59 Last Admin: 11/19/21 20:39 Dose: 200 mg Acetaminophen (Ofirmev) 1,000 mg in 100 mls @ 400 mls/hr IV Q8H PRN PRN Reason: PAIN OR FEVER Stop: 11/23/21 21:44 Last Infusion: 11/21/21 05:27 Dose: Infused Levothyroxine Sodium (Levothyroxine Sodium 88 Mcg Tablet) 88 mcg PO DAILYBB [facility] Stop: 12/19/21 06:29 Last Admin: 11/21/21 05:11 Dose: 88 mcg Loratadine (Loratadine 10 Mg Tab) 10 mg PO DAILY [facility] Stop: 12/19/21 08:59 Last Admin: 11/21/21 08:53 Dose: 10 mg Miscellaneous (Order Awaiting Action: Clindamycin Phosphate 1 % Gel) 1 each N/A QS [facility] Stop: 12/19/21 00:00 Last Admin: 11/21/21 15:51 Dose: Not Given Miscellaneous (Order Awaiting Action: Cyclosporine [Restasis] 0.05 % Dropperette) 1 each N/A QS [facility] Stop: 12/19/21 00:00 Last Admin: 11/21/21 15:51 Dose: Not Given Multivitamins/Minerals (Calcium 600mg + Vit D 400 Iu Tab) 1 tab PO DAILY [facility] Stop: 12/19/21 08:59 Last Admin: 11/21/21 08:52 Dose: 1 tab Ondansetron HCl (Ondansetron Inj 2 Mg/Ml 2 Ml Vial) 4 mg IV Q4H PRN PRN Reason: Nausea And Vomiting Stop: 12/18/21 21:44 Ondansetron HCl (Ondansetron 4 Mg Od Tab) 8 mg PO Q8H PRN PRN Reason: Nausea Last Admin: 11/20/21 20:30 Dose: 8 mg Pantoprazole Sodium (Pantoprazole 40 Mg Tab) 40 mg PO BID [facility] Stop: 12/18/21 21:44 Last Admin: 11/21/21 08:54 Dose: 40 mg Pregabalin (Pregabalin 75 Mg Cap) 225 mg PO AMHS [facility] Stop: 12/18/21 21:44 Last Admin: 11/21/21 08:50 Dose: 225 mg Saccharomyces Boulardii (Saccharomyces Boulardii 250 Mg Cap) 250 mg PO DAILY [facility] Stop: 12/19/21 08:59 Last Admin: 11/21/21 08:54 Dose: 250 mg Temazepam (Temazepam 7.5 Mg Capsule) 7.5 mg PO HS PRN PRN Reason: Insomnia Stop: 12/18/21 23:36 Triamcinolone Acetonide (Triamcinolone Acet 0.1% Cr 15 Gm Tube) 1 appln TOP BID [facility] Stop: 12/18/21 21:44 Last Admin: 11/21/21 08:54 Dose: Not Given Vitamin D (Cholecalciferol 5,000 Units 125 Mcg Tab) 5,000 units PO DAILY [facility] Stop: 12/19/21 08:59 Last Admin: 11/21/21 08:52 Dose: 5,000 units Vortioxetine (Vortioxetine Hydrobromide 20mg) 1 each PO DAILY [facility] Stop: 12/19/21 12:59 Last Admin: 11/21/21 08:55 Dose: 1 each
[2021-11-22] MEDS: LEVOTHYROXINE SODIUM 88 MCG TABLET PO SCH (05:55)
[2021-11-22] MEDS: ORDER AWAITING ACTION: Cyclosporine [Restasis] 0.05 % Dropperette SCH ×2 (07:49→16:00)
[2021-11-22] MEDS: ENOXAPARIN INJ 40 MG/0.4 ML SYR SQ SCH (08:31)
[2021-11-22] MEDS: guaiFENesin 600 MG TABCR PO SCH (08:31)
[2021-11-22] MEDS: FUROSEMIDE 20 MG TAB PO SCH (08:32)
[2021-11-22] MEDS: CHOLECALCIFEROL 5,000 UNITS 125 MCG TAB PO SCH (08:32)
[2021-11-22] MEDS: LORATADINE 10 MG TAB PO SCH (08:32)
[2021-11-22] MEDS: CALCIUM 600MG + VIT D 400 IU TAB PO SCH (08:33)
[2021-11-22] MEDS: busPIRone 5 MG TAB PO SCH ×2 (08:33→13:40)
[2021-11-22] MEDS: SACCHAROMYCES BOULARDII 250 MG CAP PO SCH (08:34)
[2021-11-22] MEDS: DICLOFENAC SODIUM 75 MG TABCR PO SCH (08:34)
[2021-11-22] MEDS: PANTOprazole 40 MG TAB PO SCH (08:34)
[2021-11-22] MEDS: VORTIOXETINE HYDROBROMIDE 20MG PO SCH (08:36)
[2021-11-22] MEDS: TRIAMCINOLONE ACET 0.1% CR 15 GM TUBE TOP SCH (08:37)
[2021-11-22] MEDS: PREGABALIN 75 MG CAP PO SCH (08:46)
[2021-11-22 09:22] LABS: Hematocrit (blood only) 32.3 % (34.1-44.9); Hemoglobin 10.6 g/dl (12.0-16.0); Mean Corpuscular Hemoglobin 33.8 pg (25.0-34.0); Mean Corpuscular Hgb Conc 32.8 g/dL (32.0-36.0); Mean Corpuscular Volume 102.9 fL (80.0-100.0); Mean Platelet Volume 10.4 fL (9.4-12.3); Nucleated RBC # (auto) 0.02 K/uL (0-0); Nucleated RBC % (auto) 0.3 %; Platelet Count 317 K/uL (130-400); RDW Coefficient of Variation 15.7 % (11.5-14.5); RDW Standard Deviation 58.6 fL (36.4-46.3); Red Blood Count 3.14 M/uL (3.93-5.22); White Blood Count 6.96 K/ul (4.8-10.8)
[2021-11-22 09:44] LABS: Albumin Globulin Ratio 1.4 (0.9-2); Albumin Level 3.9 gm/dl (3.4-5.0); BUN Creatinine Ratio 19.8 (10-20); Bilirubin,Total 0.3 mg/dl (0.2-1.0); Calcium 8.7 mg/dl (8.5-10.1); Creatinine Clr Calc Pharmacy 65.9 ml/min; Est GFR (African American) 94.8 ml/min; Est GFR (Non-African American) 81.8 ml/min; Globulin 2.8 gm/dl (2.5-4.0); Potassium 3.7 mmol/L (3.5-5.1); Total Protein 6.7 gm/dl (6.0-8.3)
[2021-11-22 10:29] LABS: Basophils # (auto) 0.12 K/uL (0-0.2); Basophils % (auto) 1.7 %; Eosinophils # (auto) 0.01 K/uL (0-0.50); Eosinophils % (auto) 0.1 %; Immature Granulocytes # (auto) 0.27 K/uL (0.00-0.02); Immature Granulocytes % (auto) 3.9 %; Lymphocytes # (auto) 2.42 K/uL (1.2-3.4); Lymphocytes % (auto) 34.8 %; Monocytes # (auto) 0.82 K/uL (0.24-0.82); Monocytes % (auto) 11.8 %; Neutrophils # (auto) 3.32 K/uL (1.4-6.5); Neutrophils % (auto) 47.7 %; Tear Drop Cells 1+
--- NOTE | 2021-11-22 17:50 | Discharge Summary ---
Date of Service November 22, 2021 Admission HPI Per Admitting Provider This is a 56-year-old female with PMHx of metastatic breast cancer currently on chemotherapy with Adriamycin, Keytruda and Cytoxan her last round of chemotherapy administered on 11/03/2021 and Ziextenzo injection on 11/04/2021. Recently seen at urgent care clinic 11/13/2021 for a paronychia where she was started on Bactrim has been taking that. She presents to the hospital due to developing fever and chills overnight with T-max of 102. She follows with Dr. Aguilar as an outpatient. Pt notes that about 1 week ago she smashed her left middle finger on something, and then developed worsening pain, redness and pus. On 11/13/21 she sought out care at an urgent care's clinic where she was put on Bactrim for 10-day course, at this point she has completed 5 days. Culture of the wound is positive for Pasteurella multocida on outpatient Epic review. Patient notes that she has 5 cats in her house and sent her parents to take care of them since she is here in the ER. Currently she reports feeling slightly nauseous. Pt notes she has had severe bony pain in her hips, back, thighs and neck since having chemotherapy 2 weeks ago. She notes some stiffness in her neck today and pain with moving it earlier, but that it is easy to move her neck from side to side and perform neck flexion currently. She reports that she took all her routinely scheduled morning medications but is due evening medications. Principal Diagnosis Fever of Unknown Origin SIR criteria but no source of infection Discharge Exam Remains afebrile in 36 hours. Feels well. No events overnight On exam, pleasant, comfortable, non toxic. Regular rate and rhythm. Breathing comfortably on room air. No lower extremity edema. Discharge Data Allergies Allergy/AdvReac Type Severity Reaction Status Date / Time amoxicillin [From Augmentin] Allergy itchy Verified 11/18/21 19:38 hands and throat clarithromycin [From Biaxin] Allergy itchy Verified 11/18/21 19:38 hands & throat clavulanic acid Allergy itchy Verified 11/18/21 19:38 [From Augmentin] hands and throat rizatriptan [From Maxalt] AdvReac Difficulty Verified 11/18/21 19:39 Swallowing sumatriptan [From Imitrex] AdvReac Difficulty Verified 11/18/21 19:39 Swallowing Consultations 11/18/21 18:09 ED Decision to Admit Stat 11/21/21 07:52 Consult Infectious Diseases Routine 11/21/21 11:08 Consult Rheumatology Routine Ordered Studies 11/20/21 15:31 CT abd pelvis oral and IV con Routine CT chest with contrast [CT chest diagnostic w con] Routine Hospital Course (1) Breast cancer: (2) History of antineoplastic therapy: (3) Paronychia of finger of left hand: (4) Infection by Pasteurella multocida: Plan Ms Christina Florian is a 56 year old female with breast cancer currently getting chemotherapy (last treatment 11/04, sees Dr Verde), history also of Lupus on Hydroxychloroquine and remaining PMHx as above in HPI presents to ER on 11/18 with several days of fever. Patient the week prior had injured her left middle finger and it became red/swollen so she went to Urgent Care and was started on Bactrim. Upon arrival here, she was noted to have fever (38.3) and tachycardia (HR 100s). She was placed on broad spectrum antibiotics (vancomycin, Zosyn, doxycyline) and extensive infectious workup was pursued. Despite being on broad spectrum antibiotics, she continued to have fever and her infectious workup was unrevealing. Blood cultures, Urinalysis, CT chest/abdomen/pelvis with IV contrast, TTE, tick borne panel were all negative. With ongoing fever and negative infectious workup--> case was discussed with outside solar sales consultant ID doctor at [facility] and it was recommended she be observed off antibiotics. First night off antibiotics, she still had fevers but subsequently her fevers resolved. At the time of discharge she remained afebrile for 36 hours and repeat blood cultures obtained after she spiked a fever (and was off antibiotics) remained negative as well. Initially, there was concern that possibly her FUO may be rheumatologic in origin. Case was discussed with outside solar sales consultant titrator and it was suggested complement C3, C4, anti DS DNA and anti histone levels be checked but these studies are send out and won't be immediately available. Since she remains stable and afebrile off antibiotics, with a negative infectious workup--> she will be discharged home with follow up with her PCP and Oncologist. At the time of discharge, her pending studies are: final blood cultures (prelim at 24 hrs and 48 hrs were negative), Anaplasma PCR, Ehrlichiosis PCR, C3, C4, Anti DS DNA and anti histone were pending--> these can be followed up with her PCP. She has a rheumatology appointment in January but should see them sooner if her lupus panel comes back abnormal. She has an appointment with Dr Aguilar on 11/24 and will discuss with him whether her next round of chemotherapy should be rescheduled. Patient understands her discharge instructions and all questions were answered to her satisfaction. Total Time Total Time Spent Total Time Spent (In Minutes): 45 Discharge Plan Discharge Items Patient Disposition: Home - Self-Care Reason For Visit: BREAST CANCER, FEVER, TACHYCARDIA Discharge Diagnosis: Fever of unknown origin. Likely drug induced Condition on Discharge: Good Activity: Resume your previous activity Non-emergency contact: Primary Care Provider and Oncologist Call non-emergency contact if: you have any medication questions and you have a fever Follow-up/Referrals: Kiesha Scherer DO [Primary Care Provider] - Jacinda Cardenas MD, PhD [Physician] - Zuleyma Aguilar MD [Family Provider] - Diet: Regular Addtl Attending Provider Instructions: You were admitted for fever at home. You were taking Bactrim and in the hospital was placed on vancomycin, zosyn and doxycycline while here You had an extensive infectious workup which was negative. Despite being on broad spectrum antibiotics, you continued to have fevers. We discussed with ID and Dr Aguilar and it was recommended you be observed off antibiotics. Off antibiotics you had one night of fever but later remained fever free. Your fever may have been triggered by Bactrim use. At the time of discharge, you had pending studies that needs to be followed up with by your PCP -Anaplasma PCR, Ehrlichiosis PCR (your initial tick borne studies were negative) -Complement C3, Complement C4, Anti DS DNA, Anti Histone DNA (this is to see if you are having a Lupus flare)--> You already have a follow up Rheumatology visit scheduled for January, if these studies are abnormal--> please see Rheumatology sooner Pending Studies at Discharge: Yes Studies:: -Anaplasma PCR, Ehrlichiosis PCR -Complement C3, Complement C4, Anti DS DNA, Anti Histone DNA -Final blood cultures from 11/18 and 11/21 (will finalize after 5 days), preliminary was negative Stand-Alone Forms: My [facility], Smoking Cessation Medications and DC Order Prescriptions: Continued cetirizine [Zyrtec] 10 mg Tablet 10 mg PO DAILY PRN (Reason: allergies) heparin lock flush (porcine) [heparin lock flush] 10 unit/mL Solution 5 unit IV BID Rx Instructions: fLUSH EACH LUMEN OF PICC hydroxychloroquine 200 mg tablet 200 mg PO HS Rx Instructions: TAKES 2 TABS QOD (1 TAB BID) AND ALTERNATES WITH 1 TAB QOD (1 TAB QHS) loratadine [Claritin] 10 mg Tablet 10 mg PO DAILY tizanidine [Zanaflex] 4 mg Capsule 4 mg PO DIRECTED PRN (Reason: muscle spasms) hydroxychloroquine 200 mg tablet 200 mg PO BID Rx Instructions: TAKES 2 TABS QOD (1 TAB BID) AND ALTERNATES WITH 1 TAB QOD (1 TAB QHS) Discontinued sulfamethoxazole-trimethoprim 800-160 mg tablet 1 tab PO AMPM No Action triazolam [Halcion] 0.25 mg Tablet 0.25 mg PO HS PRN (Reason: ..) ondansetron HCl [Zofran] 8 mg Tablet 8 mg PO Q8H PRN (Reason: Nausea) prochlorperazine maleate [Compazine] 10 mg Tablet 10 mg PO Q6H PRN (Reason: Nausea) triamcinolone acetonide 0.1 % cream 1 applic TOPICAL BID Rx Instructions: until rash dissolved then prn for flare ups lidocaine-prilocaine 2.5-2.5 % cream 1 applic topical DIRECTED levothyroxine 88 mcg tablet 88 mcg PO QAM clindamycin phosphate 1 % gel 1 ea TOPICAL BID Rx Instructions: APPLY TO NEW AND RESOLVING LESIONS pantoprazole [Protonix] 40 mg Tablet,Delayed Release (Dr/Ec) 40 mg PO BID Rx Instructions: Take am & hs buspirone 10 mg tablet 10 mg PO TID Rx Instructions: Take AM, NOON & before HS diclofenac sodium 75 mg tablet,delayed release (DR/EC) 75 mg PO BID PRN (Reason: ,FLARE UPS) Rx Instructions: TAKE WITH MEALS furosemide 20 mg tablet 20 mg PO DAILY cyclosporine [Restasis] 0.05 % Dropperette 1 drp OPHTHALMIC (EYE) Q12H Saccharomyces boulardii 250 mg Capsule 250 mg PO BID pregabalin 225 mg capsule 225 mg PO AMHS calcium carbonate-vitamin D3 [Calcium 500 + D] 500 mg-10 mcg (400 unit) Tablet 1 tab PO DAILY cholecalciferol (vitamin D3) [Vitamin D3] 125 mcg (5,000 unit) Tablet 125 mcg PO DAILY Trintellix 20 mg Tablet 20 mg PO DAILY Discharge Orders: Discharge Order (Routine); Ordered 11/22/21 Ordered By: Vanessa Hennessy Admission Data Admit Date/Time: 11/18/21 18:30 Attending Provider: Vanessa Hennessy Admit Provider: Tor Aburto Primary Care Provider: Kiesha Scherer Other Providers: Tor Aburto ; Paul Coreas ; Danny Hoffman ; Richar Briceno I. ; Sae Pantoja II ; Jo Berrios ; Bharathi Reed ; Paul Mosqueda ; Jacinda Cardenas I.
[2021-11-24 01:06] LABS: Ehrlichia chaff DNA Bld Negative (Negative)
[2021-11-27 03:32] LABS: Anti-Histone Ab <1.0 U (<1.0); Anti-dsDNA Recombinant <1 IU/mL; Complement C3 169 mg/dL (83-193); Complement Total(CH50) >60 U/mL (31-60)
== END 2021-11-22 18:53 | disposition home or self-care (01) | DRG 864 ==
LOC: ED 15:16 → SUATTDRO 18:30 → EDINP 18:30 → 2E 11-19 03:50 → 3W 11-21 16:58